=== PATIENT | female | born 1955 | race Caucasian/White ===

== ENCOUNTER 2021-01-08 08:55 | Day surgery (SDC) | payer OTHER, MEDICARE ==
[2021-01-05 09:42] LABS: BASOPHILS % (AUTO) 1.2 % (0.0-5.0); EOSINOPHILS % (AUTO) 3.6 % (0.0-8.0); HEMATOCRIT 36.1 % (36-48); LYMPHOCYTES % (AUTO) 24.2 % (21.0-51.0); MEAN CORPUSCULAR HEMOGLOBIN 30.2 pg (27.0-33.0); MEAN CORPUSCULAR HGB CONC 32.4 g/dL (32.0-36.0); PLATELET COUNT (AUTO) 409 K/uL (130-400); RED BLOOD CELL COUNT(AUTO) 3.88 MIL/uL (4.00-5.50); RED CELL DISTRIBUTION WIDTH 13.2 % (11.0-15.5); WHITE BLOOD COUNT (AUTO) 8.3 K/uL (4.8-10.8)
[2021-01-05 10:01] LABS: POTASSIUM 4.1 mmol/L (3.5-5.1)
[2021-01-07 11:10] VITALS: BP 163/83
[~2021-01-08] VITALS: Ht 154.9 cm; Wt 77.3 kg
[2021-01-08] VITALS (22 sets, daily range): BP systolic 115–195; BP diastolic 64–97
[~2021-01-08 08:55] MED LIST: CEFAZOLIN SODIUM 1 GM VIAL IVP SCH; GABA300C PO; LOSA100T58 PO; MELO15TA12 PO; OMEP40CA21 PO; ROSU40TA21 PO
[2021-01-08] MEDS ORDERED: LACTATED RINGERS 1000ML 1,000 ML IV ONE (09:39)
[2021-01-08] MEDS ORDERED: LIDOCAINE HCL-MPF 1% 5ML AMP IJ ONE (14:01)
[2021-01-08] MEDS ORDERED: PROPOFOL 10 MG/ML 20ML VIAL IV ONE (14:01)
[2021-01-08] MEDS ORDERED: MIDAZOLAM HCL 1 MG/ML 2ML VIAL ONE (14:01)
[2021-01-08] MEDS ORDERED: ROCURONIUM 10MG/1ML SYR 10 MG/ML ML ONE (14:01)
[2021-01-08] MEDS ORDERED: FENTANYL CITRATE PF 50 MCG/1 ML 2ML VIAL ONE (14:01)
[2021-01-08] MEDS ORDERED: GLYCOPYRROLATE 1 MG/5 ML SYRINGE ONE ×2 (14:45→16:18)
[2021-01-08] MEDS ORDERED: NEOSTIGMINE 5MG/5ML SYR IV ONE (14:46)
[2021-01-08] MEDS ORDERED: CEPH500B PO (14:55)
[2021-01-08] MEDS ORDERED: TRAM50TA4 PO (14:55)
[2021-01-08] MEDS ORDERED: MEPERIDINE-PF 25 MG/ML SYG ONE ×2 (15:35→15:52)
[2021-01-08] MEDS ORDERED: HYDRALAZINE 20MG/ML VIAL ONE (16:06)
[2021-01-08] MEDS ORDERED: TRAMADOL HCL 50 MG TABLET ONE (17:05)
[2021-01-08] MEDS ORDERED: ONDANSETRON 4MG INJ ONE (17:21)
[2021-01-08] MEDS ORDERED: TRAMADOL HCL 50 MG TABLET PO ONE (18:00)
== END 2021-01-08 18:07 | disposition home or self-care (01) ==
LOC: DAH 08:55
PROVIDERS: ATTEND Orthopaedic Surgery
DX: M23.341 Other meniscus derangements, anterior horn of lateral meniscus, right knee (principal); Z20.822 Contact with and (suspected) exposure to COVID-19; M94.261 Chondromalacia, right knee; G89.29 Other chronic pain; E66.9 Obesity, unspecified; I10 Essential (primary) hypertension; Z88.6 Allergy status to analgesic agent; Z82.49 Family history of ischemic heart disease and other diseases of the circulatory system; Z83.3 Family history of diabetes mellitus; Z72.89 Other problems related to lifestyle; Z79.899 Other long term (current) drug therapy
CPT/HCPCS: 29881; 36415; 80048; 85025; 87635; A4215; A4221; A4222; A4223; A4649; A4663; A6223; C9803; J0360; J0690; J2175 ×2; J2250; J2405; J2704; J2710; J3010; J3490 ×3; J7120 ×2

== ENCOUNTER 2021-01-12 15:01 | Emergency (ER) | payer OTHER, MEDICARE ==
[~2021-01-12] VITALS: Ht 152.4 cm; Wt 76.2 kg
[~2021-01-12 15:01] MED LIST changes: -CEFAZOLIN SODIUM 1 GM VIAL IVP SCH; +CEPH500B PO; +TRAM50TA4 PO
[2021-01-12 16:20] VITALS: BP 148/78
[2021-01-12 16:55] LABS: EOSINOPHILS % (AUTO) 2.9 % (0.0-8.0); HEMATOCRIT 37.9 % (36-48); LYMPHOCYTES % (AUTO) 18.4 % (21.0-51.0); MEAN CORPUSCULAR HEMOGLOBIN 29.9 pg (27.0-33.0); MEAN CORPUSCULAR HGB CONC 32.5 g/dL (32.0-36.0); MEAN CORPUSCULAR VOLUME 92.2 fL (79-99); MONOCYTES % (AUTO) 7.2 % (3.0-13.0); NEUTROPHILS % (AUTO) 70.3 % (40.0-77.0); PLATELET COUNT (AUTO) 357 K/uL (130-400); RED BLOOD CELL COUNT(AUTO) 4.11 MIL/uL (4.00-5.50); WHITE BLOOD COUNT (AUTO) 8.3 K/uL (4.8-10.8)
[2021-01-12 17:12] LABS: POTASSIUM 4.5 mmol/L (3.5-5.1)
[2021-01-12 17:14] LABS: B-TYPE NATRIURETIC PEPTIDE 275 pg/mL (0-100)
[2021-01-12 17:16] LABS: ALBUMIN 4.1 g/dL (3.5-5.0); BILIRUBIN,TOTAL 0.4 mg/dL (0.2-1.0); TOTAL PROTEIN, SERUM 7.9 g/dL (6.0-8.3)
== END 2021-01-12 18:32 | disposition home or self-care (01) ==
LOC: EDH 15:01
DX: R51.9 Headache, unspecified (principal); R11.0 Nausea; R42 Dizziness and giddiness; I10 Essential (primary) hypertension; E78.00 Pure hypercholesterolemia, unspecified; Z79.1 Long term (current) use of non-steroidal anti-inflammatories (NSAID); Z79.899 Other long term (current) drug therapy; Z88.5 Allergy status to narcotic agent
CPT/HCPCS: 36415; 80053; 83880; 84484; 85025; 93005

== ENCOUNTER → 2022-04-13 | Outpatient (CLI) | payer BC, MEDICARE | END | disposition home or self-care (01) | LOC: EDBD → RAH 09:58 → EDBD 11:00 | PROVIDERS: ATTEND Family Medicine | DX: R11.2 Nausea with vomiting, unspecified (principal) | CPT/HCPCS: 78264; A9541 ==

== ENCOUNTER 2023-07-20 08:42 | Observation (INO) | payer BC, MEDICARE ==
[2023-07-15 09:37] VITALS: BP 159/80; PULSE 61; RESP 16
[2023-07-15 09:40] LABS: BASOPHILS # (AUTO) 0.06 K/uL (0.00-0.20); BASOPHILS % (AUTO) 1.3 % (0.0-5.0); EOSINOPHILS # (AUTO) 0.08 K/uL (0.00-0.70); EOSINOPHILS % (AUTO) 1.8 % (0.0-8.0); HEMATOCRIT 35.5 % (36-48); IMMATURE GRANULOCYTE ABSOLUTE 0.01 K/uL (0-1); LYMPHOCYTES # (AUTO) 1.9 K/uL (1.0-4.8); LYMPHOCYTES % (AUTO) 41.4 % (21.0-51.0); MEAN CORPUSCULAR HEMOGLOBIN 32.1 pg (27.0-33.0); MEAN CORPUSCULAR VOLUME 97.3 fL (79-99); MONOCYTES # (AUTO) 0.5 K/uL (0.1-1.0); MONOCYTES % (AUTO) 9.8 % (3.0-13.0); NEUTROPHILS # (AUTO) 2.1 K/uL (1.8-7.7); NEUTROPHILS % (AUTO) 45.5 % (40.0-77.0); PLATELET COUNT (AUTO) 319 K/uL (130-400); RED BLOOD CELL COUNT(AUTO) 3.65 MIL/uL (4.00-5.50); RED CELL DISTRIBUTION WIDTH 12.9 % (11.0-15.5); WHITE BLOOD COUNT (AUTO) 4.6 K/uL (4.8-10.8)
[2023-07-15 09:52] LABS: ALBUMIN 3.7 g/dL (3.5-5.0); INR <= 0.93 (0.85-1.15); PROTHROMBIN TIME 10.6 SEC (9.6-11.6)
[2023-07-15 09:53] LABS: PARTIAL THROMBOPLASTIN TIME 31.9 SEC (26.3-35.5)
[2023-07-15 10:09] LABS: APPEARANCE,URINE CLEAR (CLEAR); BILIRUBIN,URINE NEGATIVE (NEGATIVE); COLOR,URINE COLORLESS (YELLOW); GLUCOSE, URINE (UA) NEGATIVE (NEGATIVE); KETONES,URINE NEGATIVE (NEGATIVE); LEUKOCYTE ESTERASE ,URINE NEGATIVE Leu/uL (NEGATIVE); NITRATE,URINE NEGATIVE (NEGATIVE); OCCULT BLOOD,URINE NEGATIVE (NEGATIVE); PH,URINE 5.5 (5.0-8.0); PROTEIN,URINE NEGATIVE (NEGATIVE); UROBILINOGEN,URINE 0.2 mg/dL (0.2-1.0)
[2023-07-15 10:12] LABS: ADD UA MICROSCOPIC NO
[2023-07-20] VITALS (30 sets, daily range): BP systolic 111–151; BP diastolic 56–88; PULSE 50–66; RESP 16–19
[~2023-07-20] VITALS: Ht 154.9 cm; Wt 67.6 kg
[~2023-07-20 08:42] MED LIST changes: +ACET-2079 PO; -CEPH500B PO; -LOSA100T58 PO; +LOSA100T59 PO; -MELO15TA12 PO; +ONDA4TAB10 PO; -TRAM50TA4 PO
[2023-07-20] MEDS: FAMOTIDINE 20MG VIAL IV ONE (09:59)
[2023-07-20] MEDS: ACETAMINOPHEN 1,000 MG/100 ML VIAL IV ONE (09:59)
[2023-07-20] MEDS: SCOPOLAMINE HYDROBROMIDE 1 EACH ADH..PATCH TD ONE (10:07)
[2023-07-20] MEDS: CEFAZOLIN SODIUM 2 GM VIAL ONE (10:09)
[2023-07-20] MEDS: LACTATED RINGERS 1000ML 1,000 ML IV ONE (10:09)
[2023-07-20] MEDS ORDERED: KETAMINE 50MG/ML SYRINGE 50 MG/ML DISP.SYRIN ONE (10:10)
[2023-07-20] MEDS ORDERED: ROPIVACAINE 0.5% 5MG/ML 30ML ONE (10:10)
[2023-07-20] MEDS ORDERED: 0.9%NACL 10ML VIAL ONE (10:15)
[2023-07-20] MEDS ORDERED: ROCURONIUM BROMIDE 10MG/1ML 5ML VL ONE ×2 (10:15→11:40)
[2023-07-20] MEDS ORDERED: LIDOCAINE PF 100MG/5ML (2%) SYRINGE 5ML ONE (10:15)
[2023-07-20] MEDS ORDERED: FENTANYL CITRATE PF 50 MCG/1 ML 2ML VIAL ONE (10:15)
[2023-07-20] MEDS ORDERED: PROPOFOL 10 MG/ML 20ML VIAL IV ONE (10:16)
[2023-07-20] MEDS ORDERED: DEXAMETHASONE SOD PHOSPHATE 10MG/ML 1ML VIAL ONE (10:43)
[2023-07-20] MEDS ORDERED: ONDANSETRON 4MG INJ ONE (10:43)
[2023-07-20] MEDS ORDERED: GLYCOPYRROLATE 0.2 MG/ML 5 ML VIAL ONE (10:44)
[2023-07-20] MEDS ORDERED: NEOSTIGMINE METHYLSULFATE 1MG/ML IV ONE (10:44)
[2023-07-20] MEDS: CEFAZOLIN SODIUM 2 GM VIAL IVPB ONE (10:55)
[2023-07-20] MEDS ORDERED: PHENYLEPHRINE HCL 10 MG/ML 1ML VIAL IV ONE (12:26)
[2023-07-20] MEDS ORDERED: TRANEXAMIC ACID 1000MG/10ML ONE (13:04)
[2023-07-20] MEDS: TRANEXAMIC ACID 1000MG/10ML ONE (13:04)
[2023-07-20] MEDS: MEPERIDINE-PF 25 MG/ML SYG ONE ×2 (14:10→15:17)
[2023-07-20] MEDS ORDERED: POTASSIUM CHLORIDE 10% ELIXIR 20 MEQ/15 ML UDCUP PO PRN (14:30)
[2023-07-20] MEDS ORDERED: TRAMADOL HCL 50 MG TABLET PO PRN (14:30)
[2023-07-20] MEDS ORDERED: POTASSIUM CHLORIDE 20MEQ/100ML 100 ML IV PRN (14:30)
[2023-07-20] MEDS ORDERED: KCL 20 MEQ ERTAB PO PRN (14:30)
[2023-07-20] MEDS: KETOROLAC 15MG/ML VIAL (15MG/ML) IV SCH (15:54)
[2023-07-20] MEDS: FENTANYL CITRATE PF 50 MCG/1 ML 2ML VIAL ONE (15:55)
[2023-07-20] MEDS: 0.9%NACL 1000ML 1,000 ML IV SCH (17:56)
[2023-07-20] MEDS: ONDANSETRON 4MG INJ IVP PRN (19:09)
[2023-07-20] MEDS: CYCLOBENZAPRINE HCL 10 MG TABLET PO PRN (19:10)
[2023-07-20] MEDS: HYDROCODONE/ACETAMINOPHEN 5/325 MG TAB PO PRN ×2 (19:11→23:54)
[2023-07-20] MEDS: CEFAZOLIN SODIUM 2 GM VIAL IVPB SCH (19:35)
[2023-07-20] MEDS: GABAPENTIN 100 MG CAPSULE PO SCH (19:49)
[2023-07-20] MEDS: GABAPENTIN 300 MG CAPSULE PO SCH (19:51)
[2023-07-20] MEDS: ATORVASTATIN 40 MG TABLET PO SCH (19:51)
[2023-07-20] MEDS: DOCUSATE SODIUM 100 MG CAP PO SCH (19:51)
[2023-07-21] VITALS (8 sets, daily range): BP systolic 91–131; BP diastolic 55–61; PULSE 62–84; RESP 16–18; O2SAT 93–96
[2023-07-21 03:58] LABS: HEMATOCRIT 26.9 % (36-48); MEAN CORPUSCULAR HEMOGLOBIN 32.9 pg (27.0-33.0); MEAN CORPUSCULAR HGB CONC 33.8 g/dL (32.0-36.0); MEAN CORPUSCULAR VOLUME 97.1 fL (79-99); RED BLOOD CELL COUNT(AUTO) 2.77 MIL/uL (4.00-5.50); RED CELL DISTRIBUTION WIDTH 12.6 % (11.0-15.5); WHITE BLOOD COUNT (AUTO) 7.7 K/uL (4.8-10.8)
[2023-07-21 04:12] LABS: POTASSIUM 4.7 mmol/L (3.5-5.1)
[2023-07-21] MEDS: ASPIRIN 325MG EC TAB PO SCH (08:17)
[2023-07-21] MEDS: PANTOPRAZOLE 40 MG TAB DR PO SCH (08:17)
[2023-07-21] MEDS: CALCIUM CARB 500MG PO PRN (08:17)
[2023-07-21] MEDS: LOSARTAN 100 MG TABLET PO SCH (08:20)
[2023-07-21] MEDS: POLYETHYLENE GLYCOL 3350 17 GM POWD.PACK PO SCH (08:21)
[2023-07-21] MEDS: FERROUS FUMARATE 324 MG TABLET PO PRN (08:21)
[2023-07-21] MEDS ORDERED: HYDROCODONE/ACETAMINOPHEN 5/325 MG TAB PO PRN (08:30)
[2023-07-21] MEDS ORDERED: NON-FORMULARY MEDICATION 1 EACH (Rosuvastatin Calcium 40 MG) PO SCH (09:00)
[2023-07-21] MEDS ORDERED: NON-FORMULARY MEDICATION 1 EACH (Omeprazole 40 MG) PO SCH (09:00)
[2023-07-22] MEDS: KETOROLAC 15MG/ML VIAL (15MG/ML) IV PRN (05:20)
[2023-07-22 07:34] VITALS: BP 97/54; PULSE 90; RESP 18
[2023-07-22 08:00] VITALS: O2SAT 94
[2023-07-22] MEDS ORDERED: ASPI-891 PO (11:18)
[2023-07-22] MEDS ORDERED: HYDR-4060 PO (11:18)
[2023-07-22] MEDS ORDERED: CYCL-309 PO (11:18)
[2023-07-22] MEDS ORDERED: DOCU-116 PO (11:18)
[2023-07-22 11:42] VITALS: BP 87/59; PULSE 67; RESP 18
[2023-07-23] MEDS ORDERED: BISACODYL 10 MG SUPP.RECT RC PRN (14:30)
== END 2023-07-22 13:15 | disposition home or self-care (01) ==
LOC: DAH 08:42 → DAHIP 08:43 → DAH 08:43 → 4AH 17:00
PROVIDERS: ADMIT Student in an Organized Health Care Education/Training Program; ATTEND Student in an Organized Health Care Education/Training Program
DX: M16.11 Unilateral primary osteoarthritis, right hip (principal); G89.18 Other acute postprocedural pain; D62 Acute posthemorrhagic anemia; I10 Essential (primary) hypertension; E78.00 Pure hypercholesterolemia, unspecified; Z86.2 Personal history of diseases of the blood and blood-forming organs and certain disorders involving the immune mechanism; Z79.899 Other long term (current) drug therapy
CPT/HCPCS: 82040; 85025; 85610; 85730; 87088; 84134; 86140; 81003; 36415 ×2; 87641; 27130; 96376 ×3; 96365; 96375; 64447; 73503; 73521; 96366; 80048; 85027; 97161; 97116 ×4; 97530 ×3; G0378 ×43; C1776; J7120; J3490 ×8; J3010 ×2; J1100; J2001; J2704; J2405 ×4; J2710; J2175 ×2; J2795; J1885 ×3; J2371; J0690 ×4; A4649 ×2; G0168; A6255; A4663; A5120; A4215; A4223; A4222; A4221

== ENCOUNTER → 2024-06-01 | Outpatient (CLI) | payer BC ==
[~2024-06-01] MED LIST changes: -ACET-2079 PO; +ASPI-891 PO; +CYCL-309 PO; +DOCU-116 PO; +HYDR-4060 PO; +ONDA-243 PO; -ONDA4TAB10 PO; -ROSU40TA21 PO; +ROSU40TA88 PO
--- NOTE | 2024-06-01 15:17 | HMCIMG ---
Exam Type: CT LOW EXT W/O CONTRAST History: RIGHTT HIP, STRAIN OF MUSCLE, FASCIA AND TENDON Comparison: none Findings: There is status post hip replacement with adequate visualization and alignment of bony and hardware elements. No complications are seen. Bone density is preserved. No acute fractures or dislocations are seen. No blastic or lytic lesions or bones are identified. The soft tissues are unremarkable. Impression: No acute pathology.
== END | disposition home or self-care (01) ==
LOC: RAH 12:48
PROVIDERS: ATTEND Student in an Organized Health Care Education/Training Program
DX: S76.011A Strain of muscle, fascia and tendon of right hip, initial encounter (principal); Z96.641 Presence of right artificial hip joint; X58.XXXA Exposure to other specified factors, initial encounter; Y93.89 Activity, other specified; Y92.89 Other specified places as the place of occurrence of the external cause; Y99.8 Other external cause status
CPT/HCPCS: 73700

== ENCOUNTER → 2024-11-07 | Outpatient (CLI) | payer MEDICARE ==
--- NOTE | 2024-11-08 10:09 | HMCIMG ---
EXAM: MR Lumbar Spine Without Intravenous Contrast. CLINICAL HISTORY: Spinal stenosis. TECHNIQUE: Magnetic resonance images of the lumbar spine in multiple planes. CONTRAST: None. COMPARISON: None. FINDINGS: For this examination, spinal levels were labeled assuming five [id number], lumbar-type vertebrae, with the inferior labeled L5. No acute fracture. Grade 1 anterolisthesis of L4 over L5 vertebral body by 3 mm. Multilevel anterior osteophytes. Normal lordotic curvature. Normal vertebral body and disc heights. Normal marrow signal of the vertebrae. Conus medullaris terminates at the T12-L1 level. No abnormal epidural masses. The surrounding soft tissues are unremarkable. Individual spinal levels are described as follows: T12-L1: No disc bulge or herniation. No neural foraminal, lateral recess, or spinal canal stenosis. L1-L2: Mild disc bulge of 1 mm. No neural foraminal, lateral recess, or spinal canal stenosis. L2-L3: Mild disc bulge of 1 mm. No neural foraminal, lateral recess, or spinal canal stenosis. L3-L4: Mild disc bulge of 2 mm indenting the anterior thecal sac. No neural foraminal, lateral recess, or spinal canal stenosis. L4-L5: Moderate disc bulge of 3 mm indenting the anterior thecal sac and abutting bilateral traversing L5 nerve roots. Mild narrowing of both the lateral recesses and neuroforamina. Mild ligamentum flavum hypertrophy. Mild canal narrowing. Bilateral facet arthropathy. L5-S1: Mild disc bulge of 2 mm indenting the anterior thecal sac. No neural foraminal, lateral recess, or spinal canal stenosis. IMPRESSION: 1. Grade 1 anterolisthesis of L4 over L5 vertebral body by 3 mm. Multilevel anterior osteophytes. No acute fracture. 2. Moderate spondylosis at the L4-L5 level with a moderate disc bulge of 3 mm indenting the anterior thecal sac and abutting bilateral traversing L5 nerve roots. Mild narrowing of both the lateral recesses and neuroforamina. Mild ligamentum flavum hypertrophy. Mild canal narrowing. Bilateral facet arthropathy. 3. Mild disc bulges at L1-L2, L2-L3, L3-L4, and L5-S1 levels without narrowing of the neural foraminal, lateral recesses, or spinal canal. 4. 2 cysts in the interpolar region of the right kidney may be further characterized with ultrasound imaging. /[place]
== END | disposition home or self-care (01) ==
LOC: RAH 15:01
PROVIDERS: ATTEND Physical Medicine & Rehabilitation
DX: M47.26 Other spondylosis with radiculopathy, lumbar region (principal); M48.061 Spinal stenosis, lumbar region without neurogenic claudication; M51.379 Other intervertebral disc degeneration, lumbosacral region without mention of lumbar back pain or lower extremity pain; M43.17 Spondylolisthesis, lumbosacral region; N28.1 Cyst of kidney, acquired; M25.78 Osteophyte, vertebrae
CPT/HCPCS: 72148

== ENCOUNTER → 2024-12-04 | Outpatient (CLI) | payer MEDICARE ==
--- NOTE | 2024-12-04 22:23 | HMCIMG ---
EXAM: CR Lumbar Spine, 4 views. CLINICAL HISTORY: Pain. COMPARISON: MRI lumbar spine dated 11/07/2024. FINDINGS: Grade 1 degenerative anterior listhesis of L4 on L5 without significant change in flexion and extension. Mild spondylosis and degenerative disc space narrowing, most pronounced at L5-S1. Normal intervertebral disc spaces. Normal vertebral body heights. No acute fracture. Soft tissues are within normal limits. IMPRESSION: Grade 1 degenerative anterior listhesis of L4 on L5 without significant change in flexion and extension. Mild spondylosis and degenerative disc space narrowing, most pronounced at L5-S1. No gross changes within the limits of cross-modality comparison. /[place]
== END | disposition home or self-care (01) ==
LOC: RAH 14:26
PROVIDERS: ATTEND Physical Medicine & Rehabilitation
DX: M47.817 Spondylosis without myelopathy or radiculopathy, lumbosacral region (principal); M51.370 Other intervertebral disc degeneration, lumbosacral region with discogenic back pain only; M48.07 Spinal stenosis, lumbosacral region; M43.16 Spondylolisthesis, lumbar region; M47.816 Spondylosis without myelopathy or radiculopathy, lumbar region
CPT/HCPCS: 72114

== ENCOUNTER → 2025-01-24 | Outpatient (CLI) | payer MEDICARE ==
--- NOTE | 2025-01-25 08:57 | HMCIMG ---
EXAM: CR Thoracic Spine, 4 View. CLINICAL HISTORY: W/ FLEX AND EXTENSION, R/O COMPRESSION FX COMPARISON: None provided. FINDINGS: BONES: No acute fracture or aggressive appearing osseous lesion. Exaggerated kyphosis DISCS / DEGENERATIVE CHANGES: The disc spaces are preserved. SOFT TISSUES: The paraspinal soft tissue lines are unremarkable. The visualized lungs are clear. MISCELLANEOUS: Visualization of the upper thoracic spine is limited on the lateral view by overlying structures. IMPRESSION: No acute thoracic spine osseous abnormality. Exaggerated kyphosis. /[place]
== END | disposition home or self-care (01) ==
LOC: RAH 12:24
PROVIDERS: ATTEND Physical Medicine & Rehabilitation
DX: M40.294 Other kyphosis, thoracic region (principal); M54.6 Pain in thoracic spine
CPT/HCPCS: 72074

== ENCOUNTER → 2025-02-08 | Outpatient (CLI) | payer MEDICARE ==
--- NOTE | 2025-02-09 08:37 | HMCIMG ---
EXAM: MR Thoracic Spine Without Intravenous Contrast. CLINICAL HISTORY: Pain. TECHNIQUE: Magnetic resonance images of the thoracic spine in multiple planes. CONTRAST: None. COMPARISON: Radiograph dated 01/24/25. FINDINGS: The cervicothoracic and thoracolumbar junction is intact. No acute fracture. Exaggerated thoracic kyphosis. Multilevel spondylosis is evident by marginal osteophytes and facet joint arthropathy. Multilevel disc desiccation and degenerative disc height reduction noted. Mild degenerative changes were noted in the costovertebral joints. Normal vertebral body heights. Normal marrow signal of the vertebrae. The thoracic cord is in an anatomic location without abnormal signals. No abnormal extra-axial masses are present. Small, simple cortical cysts were noted in the bilateral kidneys. Irilv-ei-floxl findings are as follows: C7-T1: No disc bulge or herniation. No neural foraminal, lateral recess or spinal canal stenosis. T1-T2: No disc bulge or herniation. No neural foraminal, lateral recess or spinal canal stenosis. T2-T3: No disc bulge or herniation. No neural foraminal, lateral recess or spinal canal stenosis. T3-T4: No disc bulge or herniation. No neural foraminal, lateral recess or spinal canal stenosis. T4-T5: No disc bulge or herniation. No neural foraminal, lateral recess or spinal canal stenosis. T5-T6: No disc bulge or herniation. No neural foraminal, lateral recess or spinal canal stenosis. T6-T7: No disc bulge or herniation. No neural foraminal, lateral recess or spinal canal stenosis. T7-T8: No disc bulge or herniation. No neural foraminal, lateral recess or spinal canal stenosis. T8-T9: No disc bulge or herniation. No neural foraminal, lateral recess or spinal canal stenosis. T9-T10: No disc bulge or herniation. No neural foraminal, lateral recess or spinal canal stenosis. T10-T11: No disc bulge or herniation. No neural foraminal, lateral recess or spinal canal stenosis. T11-T12: No disc bulge or herniation. No neural foraminal, lateral recess or spinal canal stenosis. T12-L1: No disc bulge or herniation. No neural foraminal, lateral recess or spinal canal stenosis. IMPRESSION: No acute fracture. Exaggerated thoracic kyphosis. Mild multilevel spondylosis and degenerative disc changes. Mild degenerative changes in the costovertebral joints. /[place]
== END | disposition home or self-care (01) ==
LOC: RAH 08:36
PROVIDERS: ATTEND Physical Medicine & Rehabilitation
DX: S22.000A Wedge compression fracture of unspecified thoracic vertebra, initial encounter for closed fracture (principal); M47.814 Spondylosis without myelopathy or radiculopathy, thoracic region; M40.204 Unspecified kyphosis, thoracic region; M25.78 Osteophyte, vertebrae; N28.1 Cyst of kidney, acquired; M54.6 Pain in thoracic spine; X58.XXXA Exposure to other specified factors, initial encounter; Y93.89 Activity, other specified; Y92.89 Other specified places as the place of occurrence of the external cause; Y99.8 Other external cause status
CPT/HCPCS: 72146

== ENCOUNTER → 2025-03-18 | Outpatient (CLI) | payer MEDICARE ==
--- NOTE | 2025-03-19 07:07 | HMCIMG ---
EXAM: Whole body bone scan. INDICATION: Pain in thoracic spine. REFERENCE EXAMINATION: None TECHNIQUE: 25mCi of technetium 99m MDP intravenously. Delayed images were acquired at approximately 3 hours from tracer administration. FINDINGS: The radiopharmaceutical is seen in the expected bio distribution. No abnormal uptake noted in the entire skeleton. IMPRESSION: Normal Bone scan with no obvious evidence of any abnormal uptake in the visualized skeleton. /[place]
== END | disposition home or self-care (01) ==
LOC: RAH 12:33
PROVIDERS: ATTEND Physical Medicine & Rehabilitation
DX: M54.6 Pain in thoracic spine (principal)
CPT/HCPCS: 78306; A9503